=== PATIENT | female | born 1960 | race Caucasian/White ===

== ENCOUNTER → 2024-01-17 12:12 | Outpatient (REF) | payer OTHER, SELFPAY | LOC: HWWDC 12:12 | PROVIDERS: ATTENDING PHYSICIAN Obstetrics & Gynecology; FAMILY PHYSICIAN Internal Medicine | DX: Z12.31 Encounter for screening mammogram for malignant neoplasm of breast (principal) | CPT/HCPCS: 77063; 77067 ==

== ENCOUNTER → 2024-07-20 12:39 | Outpatient (REF) | payer OTHER, SELFPAY | LOC: HWRAD 12:39 | PROVIDERS: ATTENDING PHYSICIAN Internal Medicine; REFERRING PHYSICIAN Obstetrics & Gynecology | DX: Z78.0 Asymptomatic menopausal state (principal) | CPT/HCPCS: 77080 ==

== ENCOUNTER 2024-12-11 09:51 | Outpatient (RCR) | payer OTHER, SELFPAY ==
[2024-12-11 10:00] VITALS: BP 151/75
[2024-12-11] MEDS: EVENITY 105 MG SC ×2 (10:06)
== END 2024-12-12 09:29 | disposition home or self-care (01) ==
LOC: OID 09:51
PROVIDERS: ATTENDING PHYSICIAN Internal Medicine Endocrinology, Diabetes & Metabolism; FAMILY PHYSICIAN Internal Medicine
DX: M81.0 Age-related osteoporosis without current pathological fracture (principal)
CPT/HCPCS: 96372; J3111

== ENCOUNTER 2025-01-08 09:45 | Outpatient (RCR) | payer OTHER, SELFPAY ==
[2025-01-08 09:56] VITALS: BP 132/71
[2025-01-08 10:00] VITALS: BMI 21.5
[2025-01-08] MEDS: EVENITY 105 MG SC ×2 (10:10→10:11)
== END 2025-01-09 09:00 | disposition home or self-care (01) ==
LOC: OID 09:45
PROVIDERS: ATTENDING PHYSICIAN Internal Medicine Endocrinology, Diabetes & Metabolism; FAMILY PHYSICIAN Internal Medicine
DX: M81.0 Age-related osteoporosis without current pathological fracture (principal); E04.2 Nontoxic multinodular goiter
CPT/HCPCS: 96372; J3111

== ENCOUNTER → 2025-01-28 07:48 | Outpatient (REF) | payer OTHER, SELFPAY | LOC: HWWDC 07:48 | PROVIDERS: ATTENDING PHYSICIAN Obstetrics & Gynecology; FAMILY PHYSICIAN Internal Medicine | DX: Z12.31 Encounter for screening mammogram for malignant neoplasm of breast (principal) | CPT/HCPCS: 77063; 77067 ==

== ENCOUNTER → 2025-02-06 08:41 | Outpatient (REF) | payer OTHER, SELFPAY | LOC: WDC 08:41 | PROVIDERS: ATTENDING PHYSICIAN Obstetrics & Gynecology; FAMILY PHYSICIAN Internal Medicine | DX: R92.8 Other abnormal and inconclusive findings on diagnostic imaging of breast (principal) | CPT/HCPCS: 76642 ==

== ENCOUNTER 2025-03-05 09:02 | Outpatient (RCR) | payer OTHER, SELFPAY ==
[2025-02-05 10:00] VITALS: BP 138/76
[2025-02-05] MEDS: EVENITY 105 MG SC ×2 (10:16)
[2025-03-05 09:25] VITALS: BP 140/72
[2025-03-05] MEDS: EVENITY 105 MG SC ×2 (09:36)
== END 2025-03-06 23:59 | disposition home or self-care (01) ==
LOC: OID 09:02
PROVIDERS: ATTENDING PHYSICIAN Internal Medicine Endocrinology, Diabetes & Metabolism; FAMILY PHYSICIAN Internal Medicine
DX: M81.0 Age-related osteoporosis without current pathological fracture (principal)
CPT/HCPCS: 96372; J3111